=== PATIENT | female | born 1995 | race Caucasian/White ===

== ENCOUNTER 2020-06-30 14:46 | Inpatient (IN) | payer OTHER ==
[2020-06-30] MEDS ORDERED: Ibuprofen 800 MG TAB PO PRN (16:48)
[2020-06-30] MEDS ORDERED: hydrALAZINE 20 MG/ML VIAL SLOW IVP PRN (16:48)
[2020-06-30] MEDS ORDERED: HYDROcodone/Acetaminophen 5/325 mg Tablet PO PRN (16:48)
[2020-06-30] MEDS ORDERED: Ondansetron PF 4 MG/2 ML Vial IVP PRN (16:48)
[2020-06-30] MEDS ORDERED: Carboprost 250 MCG/ML AMP IM PRN (16:48)
[2020-06-30] MEDS ORDERED: Misoprostol 200 MCG TAB PR PRN (16:48)
[2020-06-30] MEDS ORDERED: Methylergonovine 0.2 MG/ML VIAL IM PRN (16:48)
[2020-06-30] MEDS ORDERED: Butorphanol Tartrate 1 MG/ML VIAL SLOW IVP PRN (16:48)
[2020-06-30] MEDS ORDERED: Promethazine HCl 25 MG/ML VIAL IM PRN (16:48)
[2020-06-30] MEDS ORDERED: Acetaminophen 500 MG TAB PO PRN (16:48)
[2020-06-30] MEDS ORDERED: Diphenoxylate HCl/Atropine Tablet PO PRN (16:48)
[2020-06-30] MEDS ORDERED: Lidocaine 1% (PF) 30 ML VIAL SC PRN (16:48)
[2020-06-30] MEDS ORDERED: Lactated Ringer's 1,000 ML IV SCH (17:00)
[2020-06-30] MEDS ORDERED: Misoprostol 200 MCG TAB ONE ×2 (17:53→19:57)
[2020-06-30 18:28] VITALS: BMI 21.9
[2020-06-30 18:49] LABS: Hemoglobin 14.3 g/dL (12.0-15.5); Mean Corpuscular HGB CONC 34.1 g/dL (32.0-36.0); Mean Corpuscular Volume 90.9 fl (81.6-98.3); Mean Platelet Volume 11.3 fl (7.4-10.4); Platelet Count 197 10x3/uL (150-450); Red Blood Cell (RBC) Count 4.61 10x6/uL (3.90-5.03); White Blood Cell (WBC) Count 10.2 10x3/uL (3.5-10.5)
[2020-06-30] MEDS ORDERED: NS w/ Oxytocin 30 units 500 ML IV PRN (19:26)
[2020-06-30] MEDS ORDERED: NS w/ Oxytocin 30 units 500 ML IVPB SCH ×2 (19:30)
[2020-06-30] MEDS ORDERED: Misoprostol 100 MCG TAB VAG SCH (19:30)
[2020-06-30] MEDS ORDERED: NS w/ Oxytocin 30 units 500 ML ONE (19:58)
[2020-07-01] MEDS ORDERED: hydrALAZINE 20 MG/ML VIAL SLOW IVP PRN (00:23)
[2020-07-01] MEDS ORDERED: HYDROcodone/Acetaminophen 5/325 mg Tablet PO PRN ×2 (00:23)
[2020-07-01] MEDS ORDERED: Milk Of Magnesia 30 ML UDCUP PO PRN (00:23)
[2020-07-01] MEDS ORDERED: diphenhydrAMINE 25 MG CAP PO PRN (00:23)
[2020-07-01] MEDS ORDERED: Ondansetron PF 4 MG/2 ML Vial IVP PRN (00:23)
[2020-07-01] MEDS ORDERED: Promethazine HCl 25 MG/ML VIAL IM PRN (00:23)
[2020-07-01] MEDS ORDERED: Adacel (T-DAP) 0.5 ML SYRINGE IM ONE (00:23)
[2020-07-01] MEDS ORDERED: Bisacodyl 10 MG SUPP PR PRN (00:23)
[2020-07-01] MEDS ORDERED: Preparation H Ointment 28 GM TUBE PR PRN (00:23)
[2020-07-01] MEDS ORDERED: Lanolin Ointment 7 GM TUBE TOP PRN (00:23)
[2020-07-01] MEDS ORDERED: Benzocaine-Menthol 82.5 ML CAN TOP PRN (00:23)
[2020-07-01] MEDS ORDERED: NS w/ Oxytocin 30 units 500 ML IV SCH (00:45)
[2020-07-01] MEDS ORDERED: Ibuprofen 800 MG TAB PO SCH (01:00)
[2020-07-01] MEDS ORDERED: Ferrous Sulfate 325 MG TAB PO SCH (08:00)
[2020-07-01] MEDS ORDERED: Prenatal Vitamin 1 TAB PO SCH (09:00)
[2020-07-01 18:10] LABS: SARS-CoV-2 PCR NAA for Saliva Not Detected (NotDetected)
[2020-07-02] MEDS ORDERED: Docusate Calcium (SURFAK) 240 MG CAP PO SCH (09:00)
[2020-07-02 18:37] LABS: CMV IgG AB Less than 0.60 U/mL (0.00-0.59)
[2020-07-02 19:13] LABS: Toxoplasma IgG AB Less than 3.0 IU/mL (0.0-7.1); Toxoplasma IgM AB Less than 3.0 AU/mL (0.0-7.9)
[2020-07-03 14:38] LABS: Parvovirus B19 IgG ABS 3.9 index (0.0-0.8); Parvovirus B19 IgM ABS 0.1 index (0.0-0.8)
== END 2020-07-01 11:42 | disposition home or self-care (01) | DRG 805 ==
LOC: CSHLD 14:46
PROVIDERS: ADMIT Family Medicine; ATTEND Family Medicine
PROC: 10E0XZZ Delivery of Products of Conception, External Approach (ICD-10-PCS; principal; 2020-06-30)
DX: O36.4XX0 Maternal care for intrauterine death, not applicable or unspecified (principal); O60.14X0 Preterm labor third trimester with preterm delivery third trimester, not applicable or unspecified; Z37.1 Single stillbirth; Z3A.32 32 weeks gestation of pregnancy; Z20.822 Contact with and (suspected) exposure to COVID-19
CPT/HCPCS: 85027; 86644; 86645; 86747; 86777; 86778; 86850; 86900; 86901; 87635; 88307; 99285; J0595; U0003; U0005